=== PATIENT | male | born 1945 | race Two or more races ===

== ENCOUNTER 2020-10-03 05:38 | Day surgery (SDC) | payer OTHER ==
[~2020-10-03 05:38] MED LIST: ATORVASTATIN CA10 MG; AVAPRO75 MG; FORTAMET500 MG; HYDRODIURIL12.5 MG; LANTUS SOL100 UNIT/1; TIROSINT13 MCG
[2020-10-03] MEDS ORDERED: FLUCONAZOLE100 MG PO (09:35)
== END 2020-10-03 15:15 | disposition home or self-care (01) ==
LOC: CIR.AMB 05:38
PROVIDERS: ATTEND Surgery
DX: T83.410S Breakdown (mechanical) of implanted penile prosthesis, sequela (principal); L08.89 Other specified local infections of the skin and subcutaneous tissue; Z20.828 Contact with and (suspected) exposure to other viral communicable diseases; N48.29 Other inflammatory disorders of penis; Z53.09 Procedure and treatment not carried out because of other contraindication
CPT/HCPCS: 54410; C1813

== ENCOUNTER 2020-10-31 11:48 | Day surgery (SDC) | payer OTHER ==
[~2020-10-31 11:48] MED LIST changes: +CENTRUM ADULTS1 EACH PO; +FLUCONAZOLE100 MG PO; +HYDROCHLO PO; +IRBESARTAN-HCT1 EAC1 PO; +LEVOXYL100 MCG PO
[2020-10-31] MEDS ORDERED: PERCOCET 5-3251 EACH PO (18:10)
[2020-10-31] MEDS ORDERED: MELOXICAM7.5 MG PO (18:10)
[2020-10-31] MEDS ORDERED: NEURONTIN300 MG PO (18:12)
== END 2020-10-31 19:20 | disposition home or self-care (01) ==
LOC: CIR.AMB 11:48
PROVIDERS: ATTEND Surgery
DX: T83.410S Breakdown (mechanical) of implanted penile prosthesis, sequela (principal); Z20.828 Contact with and (suspected) exposure to other viral communicable diseases
CPT/HCPCS: 54410; C1813